=== PATIENT | female | born 1985 | race Two or more races ===

== ENCOUNTER 2020-08-16 14:02 | Emergency (ER) | payer MEDICAID ==
[~2020-08-16] VITALS: Ht 157.5 cm; Wt 81.6 kg
[2020-08-16 14:13] VITALS: BP 152/98
--- NOTE | 2020-08-16 15:15 | NUR ---
SEEN AND EXAMINED BY .
--- NOTE | 2020-08-16 15:34 | NUR ---
Patient discharged to home in stable condition. Written and verbal after care instructions given. Patient verbalizes understanding of instruction.
== END 2020-08-16 15:35 | disposition home or self-care (01) ==
LOC: ER 14:11
DX: H10.13 Acute atopic conjunctivitis, bilateral (principal); L70.8 Other acne; Z98.890 Other specified postprocedural states